=== PATIENT | male | born 1985 | race Caucasian/White ===

== ENCOUNTER 2021-06-23 08:36 | Outpatient (CLI) | payer OTHER, SELFPAY ==
--- NOTE | ~2021-06-23 | MR_ITS ---
EXAMINATION: MR knee LT wo con DATE: 06/23/2021 09:15 INDICATION: Internal derangement of the left knee presenting with medial left knee pain and limited r ramya of motion post softball injury TECHNIQUE: Magnetic resonance imaging (MRI) of the left knee was performed without intravenous contra st. Sequences included coronal PD-weighted FSE, coronal PD-weighted FS FSE, sagittal T2-weighted FSE , sagittal PD-weighted FS FSE and axial PD weighted fat saturated FSE. COMPARISON: None. FINDINGS: Medial compartment: Medial meniscus is normal. Articular cartilage is normal. Lateral compartment: Lateral meniscus is normal. Articular cartilage is normal. Patellofemoral compartment: Articular cartilage is normal. Ligaments and tendons: Anterior cruciate ligament is normal. There is mild thickening and mild increased signal in the proxi mal posterior cruciate ligament with some edema in the adjacent fat at the posterior aspect of the in tercondylar notch which suggests at least partial tear of the posterior cruciate ligament. The medial collateral ligament and fibular collateral ligament complex are normal. The extensor mechanism is no rmal. The visualized medial and lateral hamstring tendons as well as the iliotibial band are normal. Fluid: Physiologic amount of fluid in the joint space. No loose osteochondral bodies identified. Osseous/other: Normal marrow signal. No fracture or pathologic marrow replacing process. IMPRESSION: 1. Likely partial tear/moderate grade sprain of the proximal posterior cruciate ligament. Correlate w ith physical exam to assess for degree of residual functional integrity. 2. Otherwise normal left knee MRI with normal menisci and cartilage. Reviewed, dictated and finalized at location A. IMPRESSION: 1. Likely partial tear/moderate grade sprain of the proximal posterior cruciate ligament. Correlate with physical exam to assess for degree of residual functi onal integrity. 2. Otherwise normal left knee MRI with normal menisci and cartilage.
== END 2021-06-23 08:37 ==
PROVIDERS: PCP Internal Medicine
DX: M23.92 Unspecified internal derangement of left knee (principal)
CPT/HCPCS: 73721

== ENCOUNTER 2022-05-27 11:01 | Emergency (ER) | payer OTHER, SELFPAY ==
--- NOTE | ~2022-05-27 | XR_ITS ---
XR chest 2V DATE: 05/27/2022 11:21 INDICATION: Mid chest pain following a fall] [place] yesterday TECHNIQUE: 2 views COMPARISON: None FINDINGS: Normal heart size. No hilar or mediastinal enlargement. The lungs are clear. No pleural eff usion or pulmonary vascular or pneumothorax. Mild levoscoliosis of the thoracic spine. IMPRESSION: No active cardiopulmonary disease Reviewed, dictated and finalized at location A.
[2022-05-27 11:08] VITALS: BP 124/80; PULSE 84; RESP 16; TEMP 37.3; O2SAT 100
--- NOTE | 2022-05-27 11:11 | ED.GENADULT ---
HPI - General Adult General Chief complaint: Trauma Stated complaint: chest pain Time Seen by Provider: 05/27/22 11:19 Source: patient and RN notes reviewed Mode of arrival: ambulatory Limitations: no limitations History of Present Illness HPI narrative: 37-year-old male presents to the [facility] with complaints of sternal chest pain after being at [place] yesterday and landing on his chest on the corner of a trampoline. No bruising or swelling noted. No treatment prior to arrival. No difficulty breathing. The patient does not appear acutely ill. Related Data Allergies Allergy/AdvReac Type Severity Reaction Status Date / Time No Known Allergies Allergy Verified 05/27/22 11:17 Review of Systems Review of Systems: All systems reviewed & are unremarkable except as noted in HPI and below Constitutional: Constitutional: Reports no additional constitutional complaints, Denies chills and Denies fever(s) Eyes: Eyes: Reports no additional eye complaints ENT: Reports system reviewed and no additional complaints, except as documented Cardiovascular: Cardiovascular: Reports as per HPI Comments: Sternal wall pain Respiratory: Respiratory: Reports no additional respiratory complaints Gastrointestinal: Gastrointestinal: Reports no additional gastrointestinal complaints Musculoskeletal: Musculoskeletal: Reports no additional musculoskeletal complaints Integumentary/Breasts: Skin/Breast: Reports system reviewed and no additional complaints, except as docu Neurologic: Reports system reviewed and no additional complaints, except as documented Psychiatric: Psychiatric: Reports no additional psychiatric complaints Allergic/Immunologic: Allergic/Immunologic: Reports no additional allergic/immunologic complaints PMFSH Past Medical History Medical History Patient denies medical problems Surgical History Surgical History (Updated 05/27/22 @ 19:20 by Kisha Orona APRN) No history of previous surgery Social History Social History (Updated 05/27/22 @ 19:20 by Kisha Orona APRN) Living arrangements: with family Gender identity (if verbalized by the patient): Male Comments At the time of my signature, I reviewed and agree with the nursing past medical, surgical, social, and family history. There is no relevant family history pertinent to the patient complaint. Exam Const: General: healthy appearing, no acute distress and alert Nutritional Appearance: well nourished Orientation/consciousness: patient oriented x3 Limitations: no limitations HENMT: Head: normal to inspection Ears: external ears normal Eyes: General: appearance normal, both eyes and all related structures Pupils: Equal, round and reactive pupils present Neck: Neck: normal visual inspection, no lymphadenopathy and no meningeal signs Chest: Chest palpation & inspection: normal inspection of the chest Resp: Effort & Inspection: normal respiratory effort and no use of accessory muscles Auscultation: clear to auscultation bilaterally, no crackles, no rales, no rhonchi and no wheezes Cardio: Rate: regular rate Rhythm: regular rhythm Other: Tenderness to palpation along the right sternal border. No bruising, swelling noted. no difficulty breathing. GI: GI Palp: Yes Soft to palpation and No Tenderness to palpation present (GI) Back/Spine/Pelvis: Cervical Spine: normal cervical lordosis Thoracic/Lumbar Spine: thoracic and lumbar spine normal to inspection Skin: General skin exam: normal color Rashes: no rashes Wounds: no wounds Neuro: General: patient oriented x3, moves all extremities, no meningeal signs and no focal motor deficits Cranial nerves: Yes Equal, round and reactive pupils present Speech: normal speech Gait exam (Neuro): Normal gait present Extrem: General: normal to inspection, full ROM and capillary refill normal Psych: Appearance: grossly normal and we
== END 2022-05-27 11:43 | disposition home or self-care (01) ==
PROVIDERS: Emergency Provider Nurse Practitioner; PCP Internal Medicine
DX: R07.89 Other chest pain (principal)
CPT/HCPCS: 71046; 99213; G0463

== ENCOUNTER 2022-06-01 11:32 | Emergency (ER) | payer OTHER, SELFPAY ==
--- NOTE | ~2022-06-01 | XR_ITS ---
EXAMINATION: XR sternum min 2V INDICATION: Sternal pain TECHNIQUE: Two views of the sternum are obtained. COMPARISON: 05/27/2022 FINDINGS: No displaced fracture is identified. The soft tissues appear unremarkable. IMPRESSION: 1. No displaced sternal fracture identified. If there is high clinical suspicion for sternal fracture , consider further evaluation with CT. Reviewed, dictated and finalized at location B. IMPRESSION: 1. No displaced sternal fracture identified. If there is high clinical suspicio n for sternal fracture, consider further evaluation with CT.
--- NOTE | ~2022-06-01 | XR_ITS ---
EXAMINATION: [id number] INDICATION: Chest injury TECHNIQUE: A frontal view of the chest and 3 views of the right ribs were obtained. COMPARISON: None. FINDINGS: The lungs are free of acute opacities. No pleural effusion or pneumothorax. The cardiomedia stinal silhouette is normal. There are possible nondisplaced fractures at the anterior aspects of the right fourth and fifth ribs. IMPRESSION: 1. Possible nondisplaced fractures at the anterior fourth and fifth ribs. No acute cardiopulmonary ab normality. Reviewed, dictated and finalized at location B. IMPRESSION: 1. Possible nondisplaced fractures at the anterior fourth and fifth ribs. No ac jefferson cardiopulmonary abnormality.
[2022-06-01 11:43] VITALS: BP 125/77; PULSE 90; RESP 18; TEMP 36.4; O2SAT 100
--- NOTE | 2022-06-01 11:54 | ED.GENADULT ---
HPI - General Adult General Chief complaint: Unspecified Stated complaint: chest pain Time Seen by Provider: 06/01/22 11:54 History of Present Illness HPI narrative: 37-year-old male presents to the emergency room. States that last Saturday he was at a [place]ampoline park and when he came down on his chest landing at the intersection of 4 trampoline. States he heard a pop and he been having some pain ever since. States initially this pain was in the midportion of his chest at the sternum but now he is got more pain to the right side. He did go to an urgent care and they took an x-ray and told him everything looked fine but the pain is intensified. He did not hit his head or have any neck pain. He has not had no shortness of breath. He is a smoker. Related Data Allergies Allergy/AdvReac Type Severity Reaction Status Date / Time No Known Allergies Allergy Unknown Unverified 06/01/22 11:49 Review of Systems Review of Systems: CONSTITUTIONAL: Denies fever, chills, or sweats. EYES: Denies visual changes, redness, or discharge. ENT: Denies rhinorrhea, congestion, sore throat, or otalgia. CARDIOVASCULAR: Denies chest pain, palpitations, or edema. RESPIRATORY: Denies cough or dyspnea. Chest pain as noted in HPI GASTROINTESTINAL: Denies abdominal pain, nausea, vomiting, or diarrhea. GENITOURINARY: Denies dysuria or hematuria. SKIN: Denies rash or itching. MUSCULOSKELETAL: Denies back pain, joint pain, or myalgia. NEUROLOGIC: Denies headache, numbness, or weakness. PSYCHIATRIC: Denies anxiety or depression. PMFSH Past Medical History Medical History No active medical problems Patient denies medical problems Surgical History Surgical History No history of previous surgery Social History Social History Smoking status: Current every day smoker Gender identity (if verbalized by the patient): Male Exam Narrative: APPEARANCE: Well appearing, no pain or distress, well-nourished. Head normocephalic and atraumatic. EYES: PERRLA/EOMI, conjunctivae very clear. NOSE: Normal with no drainage EARS:TMS clear Chelsi Jaime, with good light reflex. THROAT: Pharynx clear, no exudate. NECK: Supple. No adenopathy, no masses. RESPIRATORY: Airway patent, respirations nonlabored. Clear to auscultation bilaterally, no rales, rhonchi, wheezing. Some tenderness to palpation along the upper portion of the sternum as well as to the right upper anterior chest wall. No crepitus or subcutaneous emphysema is noted. CARDIOVASCULAR: Regular rate and rhythm without murmurs, rubs, or gallops. ABDOMINAL: Soft, nontender, nondistended, no hepatosplenomegaly Musculoskeletal: Moves all extremities. Strength/ROM intact, No edema, No calf tenderness. NEURO: Alert. Cranial nerves II through XII intact. Normal gait. Good coordination. Nonfocal examination. SKIN:: Warm, dry. Normal Color PSYCHIATRIC: Normal affect/mood, normal interaction Course Vital Signs Vital signs: Vital Signs Temperature 97.5 F L 06/01/22 11:43 Pulse Rate 90 06/01/22 11:43 Respiratory Rate 18 06/01/22 11:43 Blood Pressure 125/77 06/01/22 11:43 Pulse Oximetry 100 06/01/22 11:43 Oxygen Delivery Room Air 06/01/22 11:43 Temperature 97.5 F L 06/01/22 11:43 Pulse Rate 90 06/01/22 11:43 Respiratory Rate 18 06/01/22 11:43 Blood Pressure 125/77 06/01/22 11:43 Pulse Oximetry 100 06/01/22 11:43 Oxygen Delivery Room Air 06/01/22 11:43 Medical Decision Making MDM Narrative Medical decision making narrative: X-ray of the right rib series as well as a AP chest and sternum were obtained. Sternum is unremarkable. No pneumothorax or hemothorax is noted. Possible right anterior fourth and fifth nondisplaced rib fractures are noted per the radiologist. This is likely where his pain is located. B
--- NOTE | 2022-06-01 12:19 | PC.NURSE ---
Patient off unit to Radiology.
== END 2022-06-01 13:17 | disposition home or self-care (01) ==
PROVIDERS: Emergency Provider Emergency Medicine; PCP Internal Medicine
DX: S22.41XA Multiple fractures of ribs, right side, initial encounter for closed fracture (principal); S20.211A Contusion of right front wall of thorax, initial encounter; F17.200 Nicotine dependence, unspecified, uncomplicated; Y93.44 Activity, trampolining; W22.8XXA Striking against or struck by other objects, initial encounter
CPT/HCPCS: 71101; 71120; 99283

== ENCOUNTER 2024-04-10 13:34 | Outpatient (CLI) | payer OTHER, SELFPAY ==
--- NOTE | 2024-04-10 | ECHO_ITS ---
Patient Info Name: Lang Hernandez Age: 39 years : 1985 Gender: Male Ht: 69 in Wt: 185 lbs BSA: 2.04 m2 HR: 67 bpm BP: 144 / 67 mmHg Heart Rhythm: Sinus Rhythm Technical Quality: Good Exam Date: 04/10/2024 2:03 PM Exam Location: Echo Lab Patient Status: Outpatient Admit Date: 04/10/2024 Staff Ordering Physician: Roque*Tracy APRN Retail Business Analyst: Chinedu Rodriges RDCS Attending Provider: Roque*Tracy APRN Referring Physician: Danita GUTEIRREZ; Exam Type: CA echo doppler color flow Study Info Indications R07.9 - Chest pain, unspecified R55 - Syncope and collapse Complete two-dimensional, color flow and Doppler transthoracic echocardiogram is performed. Summary 1. Left ventricular chamber dimension is normal. 2. Left ventricular systolic function is normal, estimated at 50-55%. 3. The left ventricular diastolic function is normal. 4. Right ventricular systolic function is normal. 5. No significant valvular disease. Left Ventricle Left ventricular chamber dimension is normal. Left ventricular systolic function is normal, estimated at 50-55%. There is no increased left ventricular wall thickness. The left ventricular diastolic function is normal. Right Ventricle Right ventricular chamber dimension is normal. Right ventricular systolic function is normal. Left Atria Left atrial chamber dimension is normal. Right Atria Right atrial chamber dimension is normal. Atrial Septum Intact interatrial septum visualized by color flow imaging. Aortic Valve The aortic valve is not well visualized. There is no aortic valve stenosis. There is no aortic valve regurgitation. Pulmonic Valve The pulmonic valve is not well visualized. Mitral Valve There is trace mitral valve regurgitation. Tricuspid Valve There is trace tricuspid valve regurgitation. Pericardium/Pleural There is no pericardial effusion. Inferior Vena Cava Normal inferior vena cava with >50% collapse upon inspiration consistent with normal right atrial pressure, 3 mmHg. Aorta The aortic root size at the sinus of Valsalva is normal. Left Ventricular Outflow Tract Name Value Normal LVOT 2D LVOT Diameter 2.6 cm LVOT Doppler LVOT Peak Gradient 4 mmHg LVOT Mean Gradient 2 mmHg LVOT VTI 20 cm LVOT VTI/AV VTI Ratio 0.7 LVOT Stroke Volume 106 ml LVOT CO 6.5 l/min LVOT CI 3.2 l/min/m2 Pulmonic Valve Name Value Normal PV Doppler PV Peak Gradient 3 mmHg Mitral Valve Name Value Normal MV Doppler
== END 2024-04-10 13:35 | disposition home or self-care (01) ==
PROVIDERS: PCP Internal Medicine; Visit Provider Nurse Practitioner
DX: R55 Syncope and collapse (principal); R07.9 Chest pain, unspecified
CPT/HCPCS: 93306